=== PATIENT | female | born 1985 | race Two or more races ===

== ENCOUNTER 2018-09-22 06:40 | Emergency (ER) | payer MEDICAID ==
[~2018-09-22] VITALS: Ht 154.9 cm; Wt 77.1 kg
[2018-09-22 06:54] VITALS: BP 105/71
== END 2018-09-22 07:14 | disposition home or self-care (01) ==
LOC: ER 06:47
DX: J11.1 Influenza due to unidentified influenza virus with other respiratory manifestations (principal)
CPT/HCPCS: 99283; A4606

== ENCOUNTER 2018-09-29 02:36 | Emergency (ER) | payer SELFPAY ==
[~2018-09-29] VITALS: Ht 154.9 cm; Wt 76.2 kg
[2018-09-29 02:42] VITALS: BP 134/78
--- NOTE | 2018-09-29 02:50 | NUR ---
RADIOLOGY AT BEDSIDE FOR XRAY
[2018-09-29] MEDS ORDERED: ACETAMINOPHEN 325 MG TABLET ONE (03:33)
[2018-09-29] MEDS ORDERED: ACETAMINOPHEN 325 MG TABLET PO ONE (04:00)
== END 2018-09-29 04:35 | disposition home or self-care (01) ==
LOC: ER 02:40
DX: O9A.219 Injury, poisoning and certain other consequences of external causes complicating pregnancy, unspecified trimester (principal); S93.692A Other sprain of left foot, initial encounter; W22.8XXA Striking against or struck by other objects, initial encounter; Y93.89 Activity, other specified; Y92.89 Other specified places as the place of occurrence of the external cause; Y99.8 Other external cause status
CPT/HCPCS: 73630-TC